=== PATIENT | female | born 1955 | race Caucasian/White ===

== ENCOUNTER 2017-07-10 08:30 | Outpatient (CLI) | payer OTHER | END 2017-07-10 08:31 | disposition home or self-care (01) | LOC: BICMAMMO 08:30 | PROVIDERS: ATTEND Family Medicine | DX: Z12.31 Encounter for screening mammogram for malignant neoplasm of breast (principal); R92.1 Mammographic calcification found on diagnostic imaging of breast; Z80.3 Family history of malignant neoplasm of breast | CPT/HCPCS: 77063; 77067; G0202 ==

== ENCOUNTER → 2017-07-24 | Day surgery (SDC) | payer OTHER ==
[~2017-07-24] MED LIST: PROPOFOL 200 MG/20 ML VIAL ONE
--- NOTE | 2017-07-24 15:54 | OP ---
DATE OF PROCEDURE: 07/24/2017 TITLE OF PROCEDURE: Colonoscopy. PREPROCEDURE DIAGNOSES: 1. Colon cancer screening. 2. History of benign colon polyps removed 10 years ago. POSTOPERATIVE DIAGNOSES: 1. Exam to cecum; good bowel preparation. 2. Mildly tortuous colon. 3. Mild sigmoid diverticulosis. 4. Small internal hemorrhoids. 5. Otherwise normal colonoscopy. No polyps seen. PROCEDURE IN DETAIL: Written informed consent was obtained. The patient was brought to the endoscopy suite. Total intravenous anesthesia was administered by Dr. Karel Little and associates. The patient was placed in the left lateral decubitus position. A digital rectal exam was performed that was unremarkable. A Pentax video colonoscope was inserted through the anal canal and advanced under direct visualization to the cecum. Position in the cecum was verified by clear identification of the appendiceal orifice and the ileocecal valve. The quality of the bowel preparation was good. Each colon segment was examined carefully as the colonoscope was slowly withdrawn from the cecum. Vascular pattern and haustral folds appeared normal. No polyp or vascular ectasia was identified. In the sigmoid colon, occasional small diverticula orifices were identified. There was no evidence of bleeding or infection from any of the diverticula. A retroflexed exam in the rectum demonstrated small internal hemorrhoids. The colon was decompressed as the colonoscope was removed from the patient. There were no immediate complications. She was transferred to the day stay surgery area for post-procedure monitoring. RECOMMENDATIONS: 1. Resume previous medications. 2. High fiber diet. 3. Sitz baths 3 times daily as needed for hemorrhoids. 4. Repeat colonoscopy in 7 years or 07/2024. [facility]Matt
== END ==
LOC: SDC 12:04
PROVIDERS: ATTEND Internal Medicine Gastroenterology
PROC: 0DJD8ZZ Inspection of Lower Intestinal Tract, Via Natural or Artificial Opening Endoscopic (ICD-10-PCS; principal; 2017-07-24)
DX: Z12.11 Encounter for screening for malignant neoplasm of colon (principal); K57.30 Diverticulosis of large intestine without perforation or abscess without bleeding; K64.8 Other hemorrhoids; I10 Essential (primary) hypertension; E78.00 Pure hypercholesterolemia, unspecified; Z79.899 Other long term (current) drug therapy; Z86.010 Personal history of colon polyps
CPT/HCPCS: J2704

== ENCOUNTER 2018-08-20 08:27 | Outpatient (CLI) | payer OTHER | END 2018-08-20 08:28 | disposition home or self-care (01) | LOC: BICMAMMO 08:27 | PROVIDERS: ATTEND Obstetrics & Gynecology | DX: Z12.31 Encounter for screening mammogram for malignant neoplasm of breast (principal); R92.1 Mammographic calcification found on diagnostic imaging of breast; Z80.3 Family history of malignant neoplasm of breast | CPT/HCPCS: 77063; 77067 ==

== ENCOUNTER 2019-09-02 07:57 | Outpatient (CLI) | payer OTHER ==
--- NOTE | 2019-09-02 08:53 | BD ---
DEXA SCAN: DATE: 09/02/2019. PROVIDED CLINICAL HISTORY: Postmenopausal screening. FINDINGS: Lumbar Spine: BMD (g/cm2) L1 0.915 T-Score: -0.7 L2 1.039 T-Score: 0.1 L3 1.106 T-Score: 0.2 L4 1.020 T-Score: -0.4 L1-L4 1.023 T-Score: -0.2 Femoral Neck: 0.642 T-Score: -1.9 Total Femur: 0.841 T-Score: -0.8 Impression: Calculated bone mineral density meets WHO criteria for osteopenia in the left femoral neck and places the patient at increased risk for fracture. POS: [facility]
== END 2019-09-02 07:58 | disposition home or self-care (01) ==
LOC: BICMAMMO 07:57
PROVIDERS: ATTEND Student in an Organized Health Care Education/Training Program
DX: Z13.820 Encounter for screening for osteoporosis (principal); M85.852 Other specified disorders of bone density and structure, left thigh
CPT/HCPCS: 77080

== ENCOUNTER 2020-09-07 08:00 | Outpatient (CLI) | payer OTHER ==
--- NOTE | 2020-09-07 09:10 | MMO ---
Bilateral MAMMO Bilat Screen [facility]. CLINICAL HISTORY: Patient is 64 years old and is seen for screening. The patient has the following family history of breast cancer: mother, malignant (generic). The patient has no personal history of cancer. The patient has a history of right Excisional Biopsy in ? - benign. VIEWS: The views performed were: bilateral craniocaudal with tomosynthesis; bilateral mediolateral oblique with tomosynthesis; and bilateral exaggerated craniocaudal. FILMS COMPARED: The present examination has been compared to prior imaging studies performed at 07/10/2017, 08/20/2018 and 08/30/2019. This study has been interpreted with the assistance of computer-aided detection. MAMMOGRAM FINDINGS: There are scattered fibroglandular densities. Benign calcifications are noted bilaterally. There are no suspicious masses, suspicious calcifications, or new areas of architectural distortion. IMPRESSION: THERE IS NO MAMMOGRAPHIC EVIDENCE OF MALIGNANCY. A ROUTINE FOLLOW-UP MAMMOGRAM IN 1 YEAR IS RECOMMENDED. THE RESULTS OF THIS EXAM WERE SENT TO THE PATIENT. ACR BI-RADS Category 2 - Benign finding MAMMOGRAPHY NOTE: 1. A negative mammogram report should not delay a biopsy if a dominant of clinically suspicious mass is present. 2. Approximately 10% to 15% of breast cancers are not detected by mammography. 3. Adenosis and dense breasts may obscure an underlying neoplasm. Reported by: UVALDO FABIAN MD Electonically Signed: [id number]
== END 2020-09-07 08:01 | disposition home or self-care (01) ==
LOC: BICMAMMO 08:00
PROVIDERS: ATTEND Student in an Organized Health Care Education/Training Program
DX: Z12.31 Encounter for screening mammogram for malignant neoplasm of breast (principal); Z80.3 Family history of malignant neoplasm of breast; Z91.89 Other specified personal risk factors, not elsewhere classified
CPT/HCPCS: 77063; 77067

== ENCOUNTER 2021-09-13 11:44 | Outpatient (CLI) | payer BC | END 2021-09-13 11:45 | disposition home or self-care (01) | LOC: BICMAMMO 11:44 | PROVIDERS: ATTEND Student in an Organized Health Care Education/Training Program | DX: Z12.31 Encounter for screening mammogram for malignant neoplasm of breast (principal); Z80.3 Family history of malignant neoplasm of breast; Z91.89 Other specified personal risk factors, not elsewhere classified | CPT/HCPCS: 77063; 77067 ==

== ENCOUNTER 2021-09-20 07:56 | Outpatient (CLI) | payer BC | END 2021-09-20 07:57 | disposition home or self-care (01) | LOC: BICMAMMO 07:56 | PROVIDERS: ATTEND Obstetrics & Gynecology | DX: Z13.820 Encounter for screening for osteoporosis (principal); M85.89 Other specified disorders of bone density and structure, multiple sites | CPT/HCPCS: 77080 ==

== ENCOUNTER 2023-01-20 10:55 | Outpatient (CLI) | payer BC | END 2023-01-20 10:56 | disposition home or self-care (01) | LOC: BICMAMMO 10:55 | PROVIDERS: ATTEND Obstetrics & Gynecology | DX: Z12.31 Encounter for screening mammogram for malignant neoplasm of breast (principal) | CPT/HCPCS: 77063; 77067 ==

== ENCOUNTER 2024-01-22 07:59 | Outpatient (CLI) | payer BC | END 2024-01-22 08:00 | disposition home or self-care (01) | LOC: BICMAMMO 07:59 | PROVIDERS: ATTEND Obstetrics & Gynecology | DX: Z12.31 Encounter for screening mammogram for malignant neoplasm of breast (principal); Z80.3 Family history of malignant neoplasm of breast; Z91.89 Other specified personal risk factors, not elsewhere classified | CPT/HCPCS: 77063; 77067 ==

== ENCOUNTER 2024-05-19 07:50 | Outpatient (CLI) | payer BC | END 2024-05-19 07:51 | disposition home or self-care (01) | LOC: BICRAD 07:50 | PROVIDERS: ATTEND Family Medicine | DX: S90.222D Contusion of left lesser toe(s) with damage to nail, subsequent encounter (principal) ==